=== PATIENT | male | born 1940 | race Caucasian/White ===

== ENCOUNTER 2016-06-11 11:07 | Observation (INO) | payer OTHER ==
--- NOTE | ~2016-06-11 | OP ---
Record Of Operation [facility] [address] [place]. 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 PROCEDURE: 1. Left upper extremity fistulogram. 2. Revision of the left upper extremity AV fistula to an AV graft. SURGEON: Misael Trevino M.D. ARTIFICIAL LEATHER CALENDER OPERATOR: Sarthak Campos. ANESTHESIA: MAC plus local converted to general. INDICATIONS: The patient is a 76-year-old gentleman, who has a left radiocephalic arteriovenous fistula. He has been dialyzing for three weeks with this fistula, but it is not working well. It is thought that this is thrombosed. An initial examination demonstrated that there was an outflow stenosis in the fistula. Thus, he was consented for intervention. PROCEDURE: Procedure after informed consent was obtained, the patient was taken to the operating room and placed in the supine position on the operating table. Monitored anesthesia was administered. The patient's left upper extremity was prepped and draped in usual sterile fashion. I began with an ultrasound examination of the left upper extremity and found that the fistula was patent all the way to the proximal forearm. Ultrasound- guided access was obtained of the AV fistula in an antegrade fashion. I obtained a fistulogram that demonstrated no significant outflow for the fistula. It looked like there were two branches of the fistula that were patent along the very first segments, but once again, there was no significant outflow. I tried to curl off both possible outflows for the cephalic vein and was unsuccessful. Thus, I withdrew my sheath and used manual pressure for hemostasis. I ultrasound that the veins and found that the brachial vein was small. The basilic vein was of reasonable size in the very distal arm. Thus, I made two small skin incisions overlying the basilic vein as well as the radiocephalic fistula. I tunneled a 4 to 7 mm tapered Acuseal graft from one end of the incision to the other. I created a longitudinal venotomy on the basilic vein. I spatulated the 7 mm end of the graft and sewed on to the side of the basilic vein. There was also a branch of the basilic vein that was patent. This provided additional outflow. I spatulated the other end of the graft after cutting it to the right leg. The diameter at this portion of the graft was still about 7 mm. Thus, I transected the radiocephalic fistula in the proximal forearm. I ligated the distal end. I sewed the end of the graft onto the end of the radiocephalic fistula. I have washed out the wounds, achieved hemostasis, and closed the wound in layers. The patient tolerated the procedure well without any intraprocedural complications noted. Record Of Operation [facility] [id number] [facility] [place]. [address] NAME: MAYCOL FALCON : 40 STATUS : DIS IN PAT#: [id number] AGE: 76 ADM/REG DATE : 06/11/16 MR#: [id number] REPORT SERV DATE: 06/14/16 DICTATED BY: MISAEL TREVINO DATE: 06/12/16 REPORT STATUS : Draft TRANSCRIBED BY: SURYA DATE: 06/12/16 DIRECTOR OF STRATEGIC PARTNERSHIPS/SURYA Misael Trevino M.D. / [id number] CC: Craig Pantoja MD
[~2016-06-11 11:07] MED LIST: ARICEPT10 PO; ASAB PO; ATV.5 PO; C1 PO; CELEXA20 PO; COZ50 PO; DITROPAN XL10 MG PO; FISH-EPA1000 MG PO; HUMALOG SC; HUMULIN N1 ML SC; LANTUS SC; LEVOTHYROXIN125 MCG PO; LEVOTHYROXIN150 MCG PO; LORTAB10 PO; LOTE20 PO; MEVACOR40 MG PO; NAP375 PO; NEUR300 PO; NORV10 PO; NORV5 PO; PRAVACHOL40 MG PO; PRILO PO; WELL75 PO
[2016-06-11 12:17] LABS: BASOPHILS 0.9 %; EOSINOPHILS 4.8 %; EOSINOPHILS ABSOLUTE 0.52 10/3/uL (0.0-0.53); HEMATOCRIT 34.2 % (40.0-51.0); IMMATURE GRANULOCYTES 0.5 %; IMMATURE GRANULOCYTES ABSOLUTE 0.05 10/3/uL (0.0-0.11); LYMPHOCYTES 21.6 %; LYMPHOCYTES ABSOLUTE 2.32 10/3/uL (0.67-4.30); MEAN CORPUS HGB CONC 35.1 g/dL (32.0-36.0); MEAN CORPUSCULAR HEMOGLOB 30.9 pg (26.0-34.0); MEAN PLATELET VOLUME 8.6 fL (9.2-13.0); MONOCYTES 9.1 %; MONOCYTES ABSOLUTE 0.98 10/3/uL (0.21-1.20); NEUTROPHILS 63.1 %; NEUTROPHILS ABSOLUTE 6.79 10/3/uL (2.02-8.40); PLATELET COUNT 227 10/3/uL (150-400); RBC DISTRIBUTION WIDTH 13.7 % (12.0-16.0); RED CELL COUNT 3.88 10/6/uL (4.7-6.1); WHITE BLOOD CELLS 10.8 10/3/uL (4.5-10.5)
[2016-06-11 12:30] LABS: MANUAL DIFF NO %; MEAN CORPUSCULAR VOLUME 88.1 fL (80-100)
[2016-06-11 12:46] LABS: ALBUMIN 3.5 G/DL (3.5-5.0); ALKALINE PHOSPHATASE 152 U/L (45-117); BUN (BLOOD UREA NITROGEN) 50 MG/DL (6-23); CALCIUM, SERUM 8.5 MG/DL (8.5-10.4); CHLORIDE, SERUM 109 MMOL/L (96-112); CO2 (CARBON DIOXIDE) 22 MMOL/L (24-34); CREATININE 4.45 MG/DL (0.70-1.30); GFR AFRICAN AMERICAN 14 ML/MIN (>=60); GFR NON AFRICAN AMERICAN 12 ML/MIN (>=60); GLOBULIN 3.5 G/DL (2.5-4.1); GLUCOSE, SERUM 130 MG/DL (60-99); POTASSIUM, SERUM 4.8 MMOL/L (3.5-5.3); SGOT(AST) 20 U/L (5-40); SGPT(ALT) 31 U/L (5-65); SODIUM, SERUM 141 MMOL/L (135-148); TOTAL BILIRUBIN 0.2 MG/DL (0-1.2)
[2016-06-12 13:56] LABS: HEMATOCRIT 31.7 % (40.0-51.0); HEMOGLOBIN 11.3 g/dL (13.6-17.8); MEAN CORPUS HGB CONC 35.6 g/dL (32.0-36.0); MEAN CORPUSCULAR VOLUME 87.1 fL (80-100); MEAN PLATELET VOLUME 8.8 fL (9.2-13.0); PLATELET COUNT 205 10/3/uL (150-400); RBC DISTRIBUTION WIDTH 14.1 % (12.0-16.0); RED CELL COUNT 3.64 10/6/uL (4.7-6.1)
[2016-06-12 14:03] LABS: MANUAL DIFF YES %
[2016-06-12 14:07] LABS: ALBUMIN 3.1 G/DL (3.5-5.0); CALCIUM, SERUM 7.9 MG/DL (8.5-10.4); CHLORIDE, SERUM 106 MMOL/L (96-112); CO2 (CARBON DIOXIDE) 22 MMOL/L (24-34); CREATININE 4.55 MG/DL (0.70-1.30); GFR AFRICAN AMERICAN 14 ML/MIN (>=60); GFR NON AFRICAN AMERICAN 12 ML/MIN (>=60); PHOSPHORUS, SERUM 3.6 MG/DL (2.5-4.5); POTASSIUM, SERUM 5.5 MMOL/L (3.5-5.3); SODIUM, SERUM 138 MMOL/L (135-148)
[2016-06-12 14:08] LABS: BUN (BLOOD UREA NITROGEN) 55 MG/DL (6-23); GLUCOSE, SERUM 242 MG/DL (60-99)
[2016-06-12 15:00] LABS: BAND NEUTROPHILS 10 %; LYMPHOCYTES 2 %; LYMPHOCYTES ABSOLUTE (CALC) 0.34 10/3/uL (0.67-4.30); MONOCYTES 3 %; MONOCYTES ABSOLUTE (CALC) 0.51 10/3/uL (0.21-1.20); NEUTROPHILS ABSOLUTE (CALC) 16.15 10/3/uL (2.02-8.40); PLATELET ESTIMATE ADQ (ADEQUATE); SEGMENTED NEUTROPHIL (0) 85 %; TOTAL NUCLEATED CELLS 100
[2016-06-12 15:01] LABS: RBC MORPHOLOGY NORM (NORMAL); TOXIC GRANULATION 1+
[2016-06-12] MEDS ORDERED: PCET PO (16:59)
== END 2016-06-12 20:43 | disposition home or self-care (01) ==
LOC: SDC 11:07 → 2SO 18:36
PROVIDERS: Internal Medicine Nephrology; Surgery
PROC: 05WY3JZ Revision of Synthetic Substitute in Upper Vein, Percutaneous Approach (ICD-10-PCS; principal; 2016-06-11 14:00)
DX: T82.868A Thrombosis due to vascular prosthetic devices, implants and grafts, initial encounter (principal); E78.5 Hyperlipidemia, unspecified; E03.9 Hypothyroidism, unspecified; N18.9 Chronic kidney disease, unspecified; I25.2 Old myocardial infarction; I12.9 Hypertensive chronic kidney disease with stage 1 through stage 4 chronic kidney disease, or unspecified chronic kidney disease; E78.00 Pure hypercholesterolemia, unspecified; G30.9 Alzheimer's disease, unspecified; F41.9 Anxiety disorder, unspecified; E11.22 Type 2 diabetes mellitus with diabetic chronic kidney disease; I25.10 Atherosclerotic heart disease of native coronary artery without angina pectoris; Z95.1 Presence of aortocoronary bypass graft; Z88.0 Allergy status to penicillin; Z87.891 Personal history of nicotine dependence; Z87.442 Personal history of urinary calculi; Z98.890 Other specified postprocedural states
CPT/HCPCS: 36832; 36901; 80053; 80069; 82962 ×2; 83735; 85025 ×2; 93005; C1768; C1769; C1894; G0257; G0378; J0690; J2270; J2370; J2550; J3010; P9047; A9270-GY; Q9966